=== PATIENT | female | born 1955 | race Two or more races ===

== ENCOUNTER 2024-11-20 05:10 | Day surgery (SDC) | payer OTHER ==
[2024-11-14 09:15] LABS: BASO % 0.2 % (0.1-1.2); EOS # 0.17 (0.04-0.54); EOS % 3.7 % (0.7-7.0); LYMPH # 1.07 (1.18-3.74); LYMPH % 23.5 % (19.3-53.1); MEAN PLATELET VOLUME 12.20 fl (9.4-12.4); MONO # 0.30 (0.24-0.82); MONO % 6.6 % (4.7-12.5); NEUT # 3.00 (1.56-6.13); NEUT % 65.8 % (34.0-71.1); RED CELL DISTRIBUTION WIDTH 13.3 % (11.6-14.4)
[2024-11-14 09:20] LABS: URINE APPEARANCE Clear; URINE BILIRRUBIN Negative (NEGATIVE); URINE BLOOD Negative; URINE COLOR Yellow; URINE GLUCOSE Negative (NEGATIVE); URINE KETONE Negative (NEGATIVE); URINE LEUKOCYTE Small; URINE NITRATE Negative; URINE PROTEIN Negative (NEGATIVE); URINE UROBILINOGEN 0.2 E.U./dl
[2024-11-14 09:26] LABS: URINE BACTERIA 364.7 uL (0.0-1933); URINE CAST 0.14 uL (0.0-1.40); URINE EPITHELIAL CELLS 9.1 uL (0.0-38.8); URINE RBC 3.0 uL (0.0-20.8); URINE WBC 4.5 uL (0.0-23.2)
[2024-11-14 09:29] LABS: INR 0.98
[2024-11-14 09:46] LABS: COVID-19 AG NEGATIVE (NEGATIVE)
[2024-11-14 10:09] LABS: ALT/SGPT 35.0 U/L (12-78); AST/SGOT 19.0 U/L (15-37); BILIRUBIN TOTAL 0.46 mg/dL (0.3-1.2); BUN CREA RATIO 34.0 (7.0-25.0); CREATININE SERUM 0.56 mg/dL (0.55-1.02); GFR 107.98; GLOBULINA 3.3 G/DL (2.4-3.5); GLUCOSE FASTING 87.0 mg/dL (65-100); OSMOLALITY SERUM 290.0 MOSM/KG (275-295)
[~2024-11-20 05:10] MED LIST: ECOTRIN81 MG PO
[2024-11-20] MEDS ORDERED: POVIDONE-IODINE SCRUB 118 ML BOTT TOP ONE (09:00)
[2024-11-20] MEDS ORDERED: EPINEPHRINE HCL/PF 1 MG/ML AMPUL IR ONE (09:00)
[2024-11-20] MEDS ORDERED: LIDOCAINE HCL 1%/EPINEPHRINE 20ML VIAL IJ ONE (09:00)
[2024-11-20] MEDS ORDERED: CEFAZOLIN SODIUM 1,000 MG VIAL IV SCH (09:00)
[2024-11-20] MEDS ORDERED: POVIDONE-IODINE 118 ML BOTT TOP ONE (09:00)
[2024-11-20] MEDS ORDERED: CIPROFLOXACIN HCL 0.175 MG/DR DROPS OTIC ONE (10:15)
[2024-11-20] MEDS ORDERED: NEOMYCIN/BACITRACIN/POLYMYXINB 14 G TUBE TOP ONE (10:15)
[2024-11-20] MEDS ORDERED: PROMETHAZINE HCL 25 MG/ML AMPUL IM PRN (11:30)
[2024-11-20] MEDS ORDERED: KETOROLAC TROMETHAMINE 60 MG VIAL IM PRN (11:30)
== END 2024-11-20 13:45 | disposition home or self-care (01) ==
LOC: CIR.AMB 05:10
PROVIDERS: ATTEND Otolaryngology Otology & Neurotology
DX: D14.0 Benign neoplasm of middle ear, nasal cavity and accessory sinuses (principal)